=== PATIENT | female | born 1970 | race Caucasian/White ===

== ENCOUNTER 2022-05-24 12:10 | Emergency (ER) | payer OTHER ==
--- OUTSIDE RECORDS SUMMARY | 2022-05-24 12:17 | XMS REPORT | Continuity of Care Document ---
:1970 Author Organization [facility] t Address [address] [place] [address] Care Team Providers Name Role Phone DAVID CHILDRESS YASHIRA Primary Care Physician Unavailable DONAL LEDEZMA Attending Clinician Unavailable YESENIA CHAPMAN Attending Clinician Unavailable CARSON SPARKS Attending Clinician Unavailable RANDAL DECKER Attending Clinician Unavailable OXANA HARVEY Attending Clinician Unavailable DEWAYNE DIAZ Attending Clinician Unavailable DEREK CASTAÑEDA Attending Clinician Unavailable OXANA HARVEY Admitting Clinician Unavailable TOD PORTER Admitting Clinician Unavailable DEREK CASTAÑEDA Admitting Clinician Unavailable Payers Payer Name Policy Type Policy Number Effective Date Expiration Date S bennie MEDICARE PART A [id number] 2012 \T\ B 00:00:00 MEDICAID OF [place] [id number] 2012 00:00:00 Problems Condition Condition Condition Status Onset Resolution Last Treating Co mments Source Name Details Category Date Date Treatment Clinician Date NSTEMI NSTEMI Disease Active [facility]10 [facility] elevated elevated 00:00: Medica l myocardial myocardial 00 Ce nter infarction infarction ) ) Hypokalemi Hypokalemi Disease Active [facility] a a [facility]10 [facility] 00:[facility]: Medical 00 [place] Diabetes Diabetes Disease Active [facility] mellitus mellitus [facility]10 [facility] 00:[facility]: Medical 00 [place] Essential Essential Disease Active [facility] hypertensi hypertensi 2-10 [facility] on on 00:00: Medical 00 [place] Chronic Chronic Disease Active [facility] pancreatit pancreatit 2-10 [facility] is is 00:00: Medical [place] COPD COPD Disease Active [facility] (chronic (chronic [facility]10 [facility] obstructiv obstructiv 00:00: Me dical e e 00 Center pulmonary pulmonary disease) disease) LANDON LANDON Disease Active [facility] (obstructi (obstructi 2-10 [place] ve sleep ve sleep 00:00: Medica l apnea) apnea) 00 Center Allergies, Adverse Reactions, Alerts Allergy Allergy Status Severity Reaction(s) Onset Inactive Treating Comm ents Source Name Type Date Date Clinician ADHESIVE Allergy Active Hives [facility]10 [facility] 00:00: Medical [place] DOXYCYCL Allergy Active N\T\V [facility] INE 2-10 [facility] 00:00: Medical [place] IODINE Allergy Active Other [facility] AND 2-10 [facility] IODIDE 00:00: Medical CONTAINI 00 [place] NG PRODUCTS MORPHINE Allergy Active [facility] 2[facility]10 [facility] 00:00: Medical [place] OTHER Allergy Active Hives [facility] 2[facility]10 [facility] 00:00: Medical 00 [place] Adhesive Propensi Active Hives [facility] ty to 2-10 [facility] adverse 00:00: Medical reaction 00 [place] s Doxycycl Propensi Active Nausea And [facility] ine ty to Vomiting 2-10 [facility] adverse 00:00: Medical reaction 00 Center s Iodine Propensi Active Other (See seizures [facility] And ty to Comments) 2-10 [facility] Iodide adverse 00:00: Medical Containi reaction 00 [place] ng s Products Morphine Drug Active HYPOTENSI [facility] Intolera 2-10 ON [facility] nce 00:00: Medical [place] Other Propensi Active Hives [facility] ty to 2-10 l [facility] adverse 00:00: sweetener Medica l reaction 00 s [place] s ADHESIVE Drug Active Hives Univers Class 2-10 ity of 00:00: [address] DOXYCYCL DRUG Active N/V Univers INE INGREDI 2-10 ity of 00:00: [address] IODINE Drug Active Unknown-Cmnt Univ ers AND Class 2-10 ity of IODIDE 00:00: [place] CONTAINI 00 [facility] PRODUCTS MORPHINE DRUG Active Unknown-Cmnt Un luz [place] INGREDI 2-10 ity of 00:00: [place] 00 [facility] Social History Social Habit Start Date Stop Date Quantity Comments Source History of tobacco Cigarette Smoker [facility] use [facility] Cigarette 2017-08-20 2017-08-[address] [facility] [address] kes pack-years 00:00:00 00:00:00 [facility] Tobacco use and 2017-08-20 2017-08-[address] [facility] [address] [place] kes exposure 00:00:00 00:00:00 [facility] Cigarettes smoked 2017-08-20 2017-08-[address] [facility] [address] kes current (pack per 00:00:00 00:00:00 [facility] day) - Reported Sex Assigned At [birth year] [facility] 00:00:00 00:00:00 [facility] Smoking Status Start Date Stop Date Source Current every day smoker 2017-08-20 00:00:00 [facility] Medications Ordered Filled Start Stop Current Ordering Indication Dosage Frequency Signature Comments Components Source Medication Medication Date Date Medication? Clinician (SIG) Name Name pantoprazol Yes 40mg QD Take [address] [facility] e 2-13 by mouth [facility] (PROTONIX) 15:04: daily. Medic al 40 MG 44 Center tablet fluticasone Yes 1{spray QD [address] [address] (FLONASE) 2-13 } Nasal [facility] 50 15:04: route Medical mcg/actuati 44 daily. Center on nasal spray metoprolol Yes 50mg QD Take [address] (TOPROL-XL) 2-13 by mouth Luke s 50 MG 24 hr 15:04: daily. Medi dontae tablet 44 Center albuterol-i Yes 2{puff} Inhale [address] pratropium 2-13 puffs by [facility] (COMBIVENT 15:04: mouth via Me dical RESPIMAT) 44 inhaler Center 20-100 every 4 mcg/actuati (four) on Mist hours as inhaler needed for Wheezing. umeclidiniu Yes 1{puff} QD Inhale [address] m-vilantero 2-13 puff by [facility] l (ANORO 15:04: mouth via Medi dontae ELLIPTA) 44 inhaler Center 62.5-25 daily. mcg/actuati on DsDv albuterol 2017-0 Yes 1{ampul Take [address] (ACCUNEB) 2-13 e} ampule by [facility] 0.63 mg/3 15:04: nebulizati Me dical mL 44 on every 4 Center nebulizer (four) solution hours as needed for Wheezing. lipase-prot 2017- Yes 44145M{ Q.25D Take [facility] ease-amylas 2-13 lipase} 36,000 Andreas es e (CREON) 15:04: units of Medi dontae 36,000-114, [address] 000- mouth 4 180,000 (four) unit CpDR times capsule daily. ursodiol 2017-0 Yes 500mg QD Take [address] (ACTIGALL) 2-13 mg by [facility] 500 MG 15:04: mouth Medical tablet 44 daily. Center baclofen 2017-0 Yes 20mg Q.[id number] Take [address] (LIORESAL) 2-13 [id number] by mouth 3 [facility] 20 MG 15:04: 3D (three) Medical tablet 44 times Center daily. insulin 2017- Yes Inject [facility] aspart 100 2-13 subcutaneo Andreas es unit/mL 15:04: usly Medical Crtg 44 Administer Center ed by patient via insulin pump . aspirin 81 Yes 81mg QD Take 1 [facility] t MG chewable 2-13 tablet (81 Ebony kes tablet 00:00: mg total) Medica l 00 by mouth Center daily. Procedures This patient has no known procedures. Encounters Start End Encounter Admission Attending Care Care Encounter Source Date/Time Date/Time Type Type Clinicians Facility Department ID 2020-11-19 2020-11-19 Outpatient R BRISA [facility] [id number] Univers 00:00:00 00:00:00 DONAL [facility] 2020-06-12 2020-06-12 [id number] Univers 08:45:49 23:59:00 YESENIA [facility] 2020-06-08 2020-06-08 Emergency X SPARKS, [facility] ERT [id number] Univers 22:43:00 22:43:00 CARSON duarte [facility] 2020-04-30 2020-04-30 Emergency X JERONIMO, [facility] ERT [id number] Univers 20:45:00 20:45:00 RANDAL [facility] 2019-12-25 2019-12-25 Emergency X WES [facility] ERT [id number] Univers 20:45:48 23:00:00 OXANA [facility] 2019-06-27 2019-06-28 Emergency X EMILY [facility] ERT [id number] Univers 22:35:06 01:34:00 DEWAYNE [facility] Results Test Description Test Time Test Comments Results Result Comments Source BLOOD CULTURE 2017-08-26 05:01:00 Test Item Value Reference Range Interpretation Comme nts CULTURE (BEAKER) (test code = 1095) No growth in 5 days BLOOD [id number] 05:01:00 Test Item Value Reference Range Interpretation Comments CULTURE (BEAKER) (test No growth in 5 days code = 1095) CBC W/PLT COUNT & AUTO [id number] 13:17:00 Test Item Value Reference Range Interpretation Comments WHITE BLOOD CELL COUNT (BEAKER) 17.7 K/ L 3.5-10.5 H (test code = 775) RED BLOOD CELL COUNT (BEAKER) 5.10 M/ L 3.93-5.22 (test code = 761) HEMOGLOBIN (BEAKER) (test code = 15.5 GM/DL 11.2-15.7 410) HEMATOCRIT (BEAKER) (test code = 46.7 % 34.1-44.9 H 411) MEAN CORPUSCULAR VOLUME (BEAKER) 91.6 fL 79.4-94.8 (test code = 753) MEAN CORPUSCULAR HEMOGLOBIN 30.4 pg 25.6-32.2 (BEAKER) (test code = 751) MEAN CORPUSCULAR HEMOGLOBIN CONC 33.2 GM/DL 32.2-35.5 (BEAKER) (test code = 752) RED CELL DISTRIBUTION WIDTH 12.5 % 11.7-14.4 (BEAKER) (test code = 412) PLATELET COUNT (BEAKER) (test 199 K/CU MM 150-450 code = 756) MEAN PLATELET VOLUME (BEAKER) 11.1 fL 9.4-12.3 (test code = 754) NUCLEATED RED BLOOD CELLS 0 /100 WBC 0-0 (BEAKER) (test code = 413) NEUTROPHILS RELATIVE PERCENT 68 % (BEAKER) (test code = 429) LYMPHOCYTES RELATIVE PERCENT 24 % (BEAKER) (test code = 430) MONOCYTES RELATIVE PERCENT 6 % (BEAKER) (test code = 431) EOSINOPHILS RELATIVE PERCENT 1 % (BEAKER) (test code = 432) BASOPHILS RELATIVE PERCENT 0 % (BEAKER) (test code = 437) NEUTROPHILS ABSOLUTE COUNT 12.11 K/ L 1.56-6.13 H (BEAKER) (test code = 670) LYMPHOCYTES ABSOLUTE COUNT 4.28 K/ L 1.18-3.74 H (BEAKER) (test code = 414) MONOCYTES ABSOLUTE COUNT (BEAKER) 1.09 K/ L 0.24-0.36 H (test code = 415) EOSINOPHILS ABSOLUTE COUNT 0.08 K/ L 0.04-0.36 (BEAKER) (test code = 416) BASOPHILS ABSOLUTE COUNT (BEAKER) 0.07 K/ L 0.01-0.08 (test code = 417) IMMATURE GRANULOCYTES-RELATIVE 1 % 0-1 PERCENT (BEAKER) (test code = 2801) POCT-GLUCOSE [id number] 12:20:00 Test Item Value Reference Range Interpretation Comments POC-GLUCOSE METER 147 mg/dL 70-110 H TESTED AT [place] [address] ([facility]) (test code = [facility] 1538) [id number] POCT-GLUCOSE [id number] 09:40:00 Test Item Value Reference Range Interpretation Comments POC-GLUCOSE METER 111 mg/dL 70-110 H TESTED AT [place] [address] ([facility]) (test code = [facility] 1538) [id number] CBC W/PLT COUNT & AUTO [id number] 07:13:00 Test Item Value Reference Range Interpretation Comments WHITE BLOOD CELL COUNT (BEAKER) 20.4 K/ L 3.5-10.5 H (test code = 775) RED BLOOD CELL COUNT (BEAKER) 4.93 M/ L 3.93-5.22 (test code = 761) HEMOGLOBIN (BEAKER) (test code = 15.0 GM/DL 11.2-15.7 410) HEMATOCRIT (BEAKER) (test code = 45.0 % 34.1-44.9 H 411) MEAN CORPUSCULAR VOLUME (BEAKER) 91.3 fL 79.4-94.8 (test code = 753) MEAN CORPUSCULAR HEMOGLOBIN 30.4 pg 25.6-32.2 (BEAKER) (test code = 751) MEAN CORPUSCULAR HEMOGLOBIN CONC 33.3 GM/DL 32.2-35.5 (BEAKER) (test code = 752) RED CELL DISTRIBUTION WIDTH 12.4 % 11.7-14.4 (BEAKER) (test code = 412) PLATELET COUNT (BEAKER) (test 175 K/CU MM 150-450 code = 756) MEAN PLATELET VOLUME (BEAKER) 11.1 fL 9.4-12.3 (test code = 754) NUCLEATED RED BLOOD CELLS 0 /100 WBC 0-0 (BEAKER) (test code = 413) NEUTROPHILS RELATIVE PERCENT 74 % (BEAKER) (test code = 429) LYMPHOCYTES RELATIVE PERCENT 20 % (BEAKER) (test code = 430) MONOCYTES RELATIVE PERCENT 5 % (BEAKER) (test code = 431) EOSINOPHILS RELATIVE PERCENT 0 % (BEAKER) (test code = 432) BASOPHILS RELATIVE PERCENT 0 % (BEAKER) (test code = 437) NEUTROPHILS ABSOLUTE COUNT 15.15 K/ L 1.56-6.13 H (BEAKER) (test code = 670) LYMPHOCYTES ABSOLUTE COUNT 4.03 K/ L 1.18-3.74 H (BEAKER) (test code = 414) MONOCYTES ABSOLUTE COUNT (BEAKER) 1.05 K/ L 0.24-0.36 H (test code = 415) EOSINOPHILS ABSOLUTE COUNT 0.02 K/ L 0.04-0.36 L (BEAKER) (test code = 416) BASOPHILS ABSOLUTE COUNT (BEAKER) 0.04 K/ L 0.01-0.08 (test code = 417) IMMATURE GRANULOCYTES-RELATIVE 1 % 0-1 PERCENT (BEAKER) (test code = 2801) [id number] 06:15:00 Test Item Value Reference Range Interpretation Comments PHOSPHORUS (BEAKER) (test code = 3.6 mg/dL 2.3-4.7 604) [id number] 06:15:00 Test Item Value Reference Range Interpretation Comments MAGNESIUM (BEAKER) (test code = 1.7 mg/dL 1.6-2.6 627) BASIC METABOLIC [id number] 06:15:00 Test Item Value Reference Range Interpretation Comments SODIUM (BEAKER) 141 meq/L 136-145 (test code = 381) POTASSIUM (BEAKER) 4.0 meq/L 3.5-5.1 (test code = 379) CHLORIDE (BEAKER) 107 meq/L 98-107 (test code = 382) CO2 (BEAKER) (test 25 meq/L 22-29 code = 355) BLOOD UREA NITROGEN 25 mg/dL 7-21 H (BEAKER) (test code = 354) CREATININE (BEAKER) 0.76 mg/dL 0.57-1.25 (test code = 358) GLUCOSE RANDOM 183 mg/dL 70-105 H (BEAKER) (test code = 652) CALCIUM (BEAKER) 9.5 mg/dL 8.4-10.2 (test code = 697) EGFR (BEAKER) (test 81 mL/min/1.73 ESTIMA JAIRO GFR IS code = 1092) sq m NOT ACCURATE CREATININE CLEARANCE IN PREDICTING GLOMERULAR FILTRATION RATE . ESTIMATED GFR I S NOT APPLICABLE FOR DIALYSIS PATIEN TS. POCT-GLUCOSE [id number] 00:18:00 Test Item Value Reference Range Interpretation Comments POC-GLUCOSE METER 251 mg/dL 70-[address] [facility] 67[address] (BEAKER) (test code = JARRETT Serra [place] [address]) [id number] POCT-GLUCOSE [id number] 17:27:00 Test Item Value Reference Range Interpretation Comments POC-GLUCOSE METER 304 mg/dL 70-110 H Will Repea t Test/TESTED (BEAKER) (test code = AT [place] [address] [place] [address]) [facility] 7[address] 0 POCT-GLUCOSE [id number] 15:55:00 Test Item Value Reference Range Interpretation Comments POC-GLUCOSE METER 326 mg/dL 70-110 H Will Repea t Test/TESTED (BEAKER) (test code = AT [place] [address]) [facility] 7703 0 PLATELET AGGREGATION: DRUG [id number] 14:02:00 Test Item Value Reference Range Interpretation Comments STRONG ADP 44 % 70-94 L RESULT(BEAKER) (test code = 2137) WEAK ADP RESULT(BEAKER) 34 % 60-91 L (test code = 2135) ARACHADONIC ACID 4 % 63-89 L RESULT(BEAKER) (test code = 2138) PLATELET AGG DRUG Decreased response to INTERPRETATION (BEAKER) ADP suggest a (test code = 2408) [id number] drug effect. PLATELET AGG DRUG Decreased response to INTERPRETATION (BEAKER) arachidonic acid (test code = 110301) suggests aspirin-like effect. [id number] Bertha Díaz MD (BEAKER) (test code = (electronic 2621) signature) PLATELET COUNT AGG 181 K/CU MM 150-450 (BEAKER) (test code = 2656) RESPIRATORY PANEL [id number] 13:54:00 Test Item Value Reference Range Interpretation Comments HUMAN METAPNEUMOVIRUS Not detected Not detected, (BEAKER) (test code = Inconclusive 2683) RHINOVIRUS (BEAKER) (test Not detected Not detected, code = 2684) Inconclusive INFLUENZA A (BEAKER) (test Not detected Not detected, code = 2685) Inconclusive INFLUENZA A SUBTYPE H1 Not detected Not detected, (BEAKER) (test code = Inconclusive 2686) INFLUENZA A SUBTYPE H3 Not detected Not detected, (BEAKER) (test code = Inconclusive 2687) INFLUENZA A SUBTYPE Not detected Not detected, H1-2009 (BEAKER) (test Inconclusive code = 3198) INFLUENZA B (BEAKER) (test Not detected Not detected, code = 2688) Inconclusive RESPIRATORY SYNCYTIAL Not detected Not detected, VIRUS (BEAKER) (test code Inconclusive = 3199) PARAINFLUENZA VIRUS 1 Not detected Not detected, (BEAKER) (test code = Inconclusive 2691) PARAINFLUENZA VIRUS 2 Not detected Not detected, (BEAKER) (test code = Inconclusive 2692) PARAINFLUENZA VIRUS 3 Not detected Not detected, (BEAKER) (test code = Inconclusive 2693) PARAINFLUENZA VIRUS 4 Not detected Not detected, (BEAKER) (test code = Inconclusive 3200) ADENOVIRUS (BEAKER) (test Not detected Not detected, code = 2694) Inconclusive CORONAVIRUS 229E (BEAKER) Not detected Not detected, (test code = 3201) Inconclusive CORONAVIRUS HKU1 (BEAKER) Not detected Not detected, (test code = 3202) Inconclusive CORONAVIRUS NL63 (BEAKER) Not detected Not detected, (test code = 3203) Inconclusive CORONAVIRUS OC43 (BEAKER) Not detected Not detected, (test code = 3204) Inconclusive BORDETELLA PERTUSSIS Not detected Not detected, (BEAKER) (test code = Inconclusive 3205) CHLAMYDOPHILA PNEUMONIAE Not detected Not detected, (BEAKER) (test code = Inconclusive 3206) MYCOPLASMA PNEUMONIAE Not detected Not detected, (BEAKER) (test code = Inconclusive 3207) POCT-GLUCOSE [id number] 11:58:00 Test Item Value Reference Range Interpretation Comments POC-GLUCOSE METER 152 mg/dL 70-110 H TESTED AT [place] [address] (BEAKER) (test code = [facility] 1538) [id number] POCT-GLUCOSE [id number] 09:46:00 Test Item Value Reference Range Interpretation Comments POC-GLUCOSE METER 162 mg/dL 70-110 H TESTED AT [place] [address] ([facility]) (test code = [facility] 1538) [id number] RESPIRATORY PANEL [id number] 09:09:00 Test Item Value Reference Range Interpretation Comments HUMAN METAPNEUMOVIRUS Not detected Not detected, (BEAKER) (test code = Inconclusive 2683) RHINOVIRUS (BEAKER) (test Not detected Not detected, code = 2684) Inconclusive INFLUENZA A (BEAKER) (test Not detected Not detected, code = 2685) Inconclusive INFLUENZA A SUBTYPE H1 Not detected Not detected, (BEAKER) (test code = Inconclusive 2686) INFLUENZA A SUBTYPE H3 Not detected Not detected, (BEAKER) (test code = Inconclusive 2687) INFLUENZA A SUBTYPE Not detected Not detected, H1-2009 (BEAKER) (test Inconclusive code = 3198) INFLUENZA B (BEAKER) (test Not detected Not detected, code = 2688) Inconclusive RESPIRATORY SYNCYTIAL Not detected Not detected, VIRUS (BEAKER) (test code Inconclusive = 3199) PARAINFLUENZA VIRUS 1 Not detected Not detected, (BEAKER) (test code = Inconclusive 2691) PARAINFLUENZA VIRUS 2 Not detected Not detected, (BEAKER) (test code = Inconclusive 2692) PARAINFLUENZA VIRUS 3 Not detected Not detected, (BEAKER) (test code = Inconclusive 2693) PARAINFLUENZA VIRUS 4 Not detected Not detected, (BEAKER) (test code = Inconclusive 3200) ADENOVIRUS (BEAKER) (test Not detected Not detected, code = 2694) Inconclusive CORONAVIRUS 229E (BEAKER) Not detected Not detected, (test code = 3201) Inconclusive CORONAVIRUS HKU1 (BEAKER) Not detected Not detected, (test code = 3202) Inconclusive CORONAVIRUS NL63 (BEAKER) Not detected Not detected, (test code = 3203) Inconclusive CORONAVIRUS OC43 (BEAKER) Not detected Not detected, (test code = 3204) Inconclusive BORDETELLA PERTUSSIS Not detected Not detected, (BEAKER) (test code = Inconclusive 3205) CHLAMYDOPHILA PNEUMONIAE Not detected Not detected, (BEAKER) (test code = Inconclusive 3206) MYCOPLASMA PNEUMONIAE Not detected Not detected, (BEAKER) (test code = Inconclusive 3207) POCT-GLUCOSE [id number] 08:14:00 Test Item Value Reference Range Interpretation Comments POC-GLUCOSE METER 173 mg/dL 70-[address] [facility] 67[facility] (BEAKER) (test code = JARRETT ALVAREZ [place] 1538) [address] [id number] 07:23:00 Test Item Value Reference Range Interpretation Comments PHOSPHORUS (BEAKER) (test code = 3.6 mg/dL 2.3-4.7 604) [id number] 07:23:00 Test Item Value Reference Range Interpretation Comments MAGNESIUM (BEAKER) (test code = 2.1 mg/dL 1.6-2.6 627) BASIC METABOLIC [id number] 07:23:00 Test Item Value Reference Range Interpretation Comments SODIUM (BEAKER) 138 meq/L 136-145 (test code = 381) POTASSIUM (BEAKER) 4.8 meq/L 3.5-5.1 (test code = 379) CHLORIDE (BEAKER) 103 meq/L 98-107 (test code = 382) CO2 (BEAKER) (test 26 meq/L 22-29 code = 355) BLOOD UREA NITROGEN 14 mg/dL 7-21 (BEAKER) (test code = 354) CREATININE (BEAKER) 0.75 mg/dL 0.57-1.25 (test code = 358) GLUCOSE RANDOM 223 mg/dL 70-105 H (BEAKER) (test code = 652) CALCIUM (BEAKER) 9.5 mg/dL 8.4-10.2 (test code = 697) EGFR (BEAKER) (test 82 mL/min/1.73 ESTIMA JAIRO GFR IS code = 1092) sq m NOT ACCURATE CREATININE CLEARANCE IN PREDICTING GLOMERULAR FILTRATION RATE . ESTIMATED GFR I S NOT APPLICABLE FOR DIALYSIS PATIEN TS. POCT-GLUCOSE [id number] 06:24:00 Test Item Value Reference Range Interpretation Comments POC-GLUCOSE METER 202 mg/dL 70-[address] [facility] 67[facility] (BEAKER) (test code = JARRETT ALVAREZ [place] 1538) [address] CBC W/PLT COUNT & AUTO [id number] 06:03:00 Test Item Value Reference Range Interpretation Comments WHITE BLOOD CELL COUNT (BEAKER) 13.0 K/ L 3.5-10.5 H (test code = 775) RED BLOOD CELL COUNT (BEAKER) 5.35 M/ L 3.93-5.22 H (test code = 761) HEMOGLOBIN (BEAKER) (test code = 16.5 GM/DL 11.2-15.7 H 410) HEMATOCRIT (BEAKER) (test code = 49.0 % 34.1-44.9 H 411) MEAN CORPUSCULAR VOLUME (BEAKER) 91.6 fL 79.4-94.8 (test code = 753) MEAN CORPUSCULAR HEMOGLOBIN 30.8 pg 25.6-32.2 (BEAKER) (test code = 751) MEAN CORPUSCULAR HEMOGLOBIN CONC 33.7 GM/DL 32.2-35.5 (BEAKER) (test code = 752) RED CELL DISTRIBUTION WIDTH 12.3 % 11.7-14.4 (BEAKER) (test code = 412) PLATELET COUNT (BEAKER) (test 167 K/CU MM 150-450 code = 756) MEAN PLATELET VOLUME (BEAKER) 10.9 fL 9.4-12.3 (test code = 754) NUCLEATED RED BLOOD CELLS 0 /100 WBC 0-0 (BEAKER) (test code = 413) NEUTROPHILS RELATIVE PERCENT 86 % (BEAKER) (test code = 429) LYMPHOCYTES RELATIVE PERCENT 12 % (BEAKER) (test code = 430) MONOCYTES RELATIVE PERCENT 1 % (BEAKER) (test code = 431) EOSINOPHILS RELATIVE PERCENT 0 % (BEAKER) (test code = 432) BASOPHILS RELATIVE PERCENT 0 % (BEAKER) (test code = 437) NEUTROPHILS ABSOLUTE COUNT 11.26 K/ L 1.56-6.13 H (BEAKER) (test code = 670) LYMPHOCYTES ABSOLUTE COUNT 1.56 K/ L 1.18-3.74 (BEAKER) (test code = 414) MONOCYTES ABSOLUTE COUNT (BEAKER) 0.15 K/ L 0.24-0.36 L (test code = 415) EOSINOPHILS ABSOLUTE COUNT 0.00 K/ L 0.04-0.36 L (BEAKER) (test code = 416) BASOPHILS ABSOLUTE COUNT (BEAKER) 0.03 K/ L 0.01-0.08 (test code = 417) IMMATURE GRANULOCYTES-RELATIVE 0 % 0-1 PERCENT (BEAKER) (test code = 2801) [id number] 05:54:00 Test Item Value Reference Range Interpretation Comments PARTIAL THROMBOPLASTIN TIME 78.8 seconds 22.5-36.0 H (BEAKER) (test code = 760) POCT-GLUCOSE [id number] 05:34:00 Test Item Value Reference Range Interpretation Comments POC-GLUCOSE METER 219 mg/dL 70-[address] [facility] ([facility]) (test code = JARRETT Serra [facility] 1538) [address] RAD, CHEST, 1 VIEW, NON [id number] 04:57:00Reason for exam:->NSTEMIShould this be performed at the bedside?->YesFINAL REPORT Chest one view. Clinical history: NSTEMI Comparison: Chest radiograph 08/21/2017 Technique: A single frontal view of the chest was obtained. Findings: The heart is normal in size. There is no focal pulmonary consolidation, pulmonary edema, pleural effusion or pneumothorax. The bony thorax is unremarkable. Signed: Columba Koch MDReport Verified Date/Time: 08/22/2017 04:57:34 Reading Location: [address] Transitional Reading Room URINALYSIS W/ [id number] 03:42:00 Test Item Value Reference Range Interpretation Comments COLOR (BEAKER) (test code = 470) Light Yellow CLARITY (BEAKER) (test code = Clear 469) SPECIFIC GRAVITY UA (BEAKER) 1.010 1.001-1.035 (test code = 468) PH UA (BEAKER) (test code = 467) 7.0 5.0-8.0 PROTEIN UA (BEAKER) (test code = Negative Negative 464) GLUCOSE UA (BEAKER) (test code = Negative Negative 365) KETONES UA (BEAKER) (test code = Negative Negative 371) BILIRUBIN UA (BEAKER) (test code Negative Negative = 462) BLOOD UA (BEAKER) (test code = Negative Negative 461) NITRITE UA (BEAKER) (test code = Negative Negative 465) LEUKOCYTE ESTERASE UA (BEAKER) Negative Negative (test code = 466) UROBILINOGEN UA (BEAKER) (test 0.2 mg/dL 0.2-1.0 code = 463) RBC UA (BEAKER) (test code = 3 /HPF 519) WBC UA (BEAKER) (test code = < /HPF 520) SQUAMOUS EPITHELIAL (BEAKER) 1 /HPF (test code = 516) AMORPHOUS CRYSTALS (BEAKER) Rare (test code = 1584) SOURCE(BEAKER) (test code = 2795) POCT-GLUCOSE [id number] 03:07:00 Test Item Value Reference Range Interpretation Comments POC-GLUCOSE METER 205 mg/dL 70-110 H TESTED AT [place] [address] ([facility]) (test code = JARRETT DOBSON 1538) [address] CREATINE KINASE (CK), TOTAL AND [id number] 01:02:00 Test Item Value Reference Range Interpretation Comments CREATINE KINASE TOTAL (BEAKER) 122 U/L 29-200 (test code = 380) CREATINE KINASE-MB (BEAKER) (test 2.7 ng/mL 0.0-6.6 code = 750) CREATINE KINASE-MB INDEX (BEAKER) 2.2 % (test code = 395) CK-MB Reference Range:<6.7 Normal6.7-10.0 Borderline>10.0 AbnormalAPTT 2017-08-22 00:56:00 Test Item Value Reference Range Interpretation Comments PARTIAL THROMBOPLASTIN TIME 73.3 seconds 22.5-36.0 H (BEAKER) (test code = 760) POCT-GLUCOSE [id number] 00:21:00 Test Item Value Reference Range Interpretation Comments POC-GLUCOSE METER 170 mg/dL 70-110 H TESTED AT [place] [address] ([facility]) (test code = JARRETT Serra [facility] 1538) [id number] CREATINE KINASE (CK), TOTAL AND [id number] 21:11:00 Test Item Value Reference Range Interpretation Comments CREATINE KINASE TOTAL ([facility]) 143 U/L 29-200 (test code = 380) CREATINE KINASE-MB ([facility]) (test 3.7 ng/mL 0.0-6.6 code = 750) CREATINE KINASE-MB INDEX ([facility]) 2.6 % (test code = 395) CK-MB Reference Range:<6.7 Normal6.7-10.0 Borderline>10.0 AbnormalAPTT 2017-08-21 18:45:00 Test Item Value Reference Range Interpretation Comments PARTIAL THROMBOPLASTIN TIME 68.3 seconds 22.5-36.0 H ([facility]) (test code = 760) POCT-GLUCOSE [id number] 18:14:00 Test Item Value Reference Range Interpretation Comments POC-GLUCOSE METER 208 mg/dL 70-110 H TESTED AT [place] [address] ([facility]) (test code = JARRETT Serra [facility] 1538) [id number] POCT-GLUCOSE [id number] 16:28:00 Test Item Value Reference Range Interpretation Comments POC-GLUCOSE METER 195 mg/dL 70-110 H TESTED AT [place] [address] ([facility]) (test code = JARRETT Serra [facility] 1538) [id number] POCT-GLUCOSE [id number] 14:34:00 Test Item Value Reference Range Interpretation Comments POC-GLUCOSE METER 152 mg/dL 70-110 H TESTED AT [place] [address] ([facility]) (test code = JARRETT Serra [facility] 1538) [id number] POCT-GLUCOSE [id number] 12:09:00 Test Item Value Reference Range Interpretation Comments POC-GLUCOSE METER 86 mg/dL 70-110 TESTED AT [place] [address] ([facility]) (test code = BANNER Maryse [facility] [address] 1538) TROPONIN [id number] 12:02:00 Test Item Value Reference Range Interpretation Comments TROPONIN I ([facility]) (test code = 6.26 ng/mL 0.00-0.03 397) Troponin I (TnI) levels must be interpreted in the context of the presenting symptoms and the clinical findings. Elevated TnI levels indicate myocardial damage, but are not specific for ischemic heart disease. Elevated TnI levels are seen in patients with other cardiac conditions (including myocarditis and congestive heart failure), and slight TnI elevations occur in patients with other conditions, including sepsis, renal failure, acidosis, acute neurological disease, and persistent tachyarrhythmia.CREATINE KINASE (CK), TOTAL AND MB 2017-08-21 12:00:00 Test Item Value Reference Range Interpretation Comments CREATINE KINASE TOTAL (BEAKER) 185 U/L 29-200 (test code = 380) CREATINE KINASE-MB (BEAKER) (test 5.9 ng/mL 0.0-6.6 code = 750) CREATINE KINASE-MB INDEX (BEAKER) 3.2 % (test code = 395) CK-MB Reference Range:<6.7 Normal6.7-10.0 Borderline>10.0 AbnormalAPTT 2017-08-21 11:52:00 Test Item Value Reference Range Interpretation Comments PARTIAL THROMBOPLASTIN TIME 45.0 seconds 22.5-36.0 H (BEAKER) (test code = 760) HEMOGLOBIN [id number] 09:44:00 Test Item Value Reference Range Interpretation Comments HEMOGLOBIN A1C (BEAKER) (test code = 8.0 % 4.3-6.1 H 368) RAPID INFLUENZA A&B [id number] 08:47:00 Test Item Value Reference Range Interpretation Comments RAPID INFLUENZA A AG (BEAKER) Negative Negative, Inconclusive (test code = 1622) RAPID INFLUENZA B AG (BEAKER) Negative Negative, Inconclusive (test code = 1623) RAD, CHEST, 1 VIEW, NON [id number] 08:39:00Reason for exam:->NSTEMIShould this be performed at the bedside?->YesFINAL REPORT Chest, one view. HISTORY: NSTEMI COMPARISON: 08/20/2017 IMPRESSION:No significant change. Lungs clear without focal consolidation. No pleural effusion or pneumothorax.Cardiomediastinal silhouette is within normal limits. No acute osseous abnormality. Signed: Brian Thompson MDReport Verified Date/Time: 08/21/2017 08:39:52 Reading Location: [address] Body Reading Room CBC W/PLT COUNT & AUTO [id number] 07:23:00 Test Item Value Reference Range Interpretation Comments WHITE BLOOD CELL COUNT (BEAKER) 13.8 K/ L 3.5-10.5 H (test code = 775) RED BLOOD CELL COUNT (BEAKER) 5.15 M/ L 3.93-5.22 (test code = 761) HEMOGLOBIN (BEAKER) (test code = 15.6 GM/DL 11.2-15.7 410) HEMATOCRIT (BEAKER) (test code = 46.8 % 34.1-44.9 H 411) MEAN CORPUSCULAR VOLUME (BEAKER) 90.9 fL 79.4-94.8 (test code = 753) MEAN CORPUSCULAR HEMOGLOBIN 30.3 pg 25.6-32.2 (BEAKER) (test code = 751) MEAN CORPUSCULAR HEMOGLOBIN CONC 33.3 GM/DL 32.2-35.5 (BEAKER) (test code = 752) RED CELL DISTRIBUTION WIDTH 12.7 % 11.7-14.4 (BEAKER) (test code = 412) PLATELET COUNT (BEAKER) (test 181 K/CU MM 150-450 code = 756) MEAN PLATELET VOLUME (BEAKER) 10.9 fL 9.4-12.3 (test code = 754) NUCLEATED RED BLOOD CELLS 0 /100 WBC 0-0 (BEAKER) (test code = 413) NEUTROPHILS RELATIVE PERCENT 60 % (BEAKER) (test code = 429) LYMPHOCYTES RELATIVE PERCENT 31 % (BEAKER) (test code = 430) MONOCYTES RELATIVE PERCENT 7 % (BEAKER) (test code = 431) EOSINOPHILS RELATIVE PERCENT 2 % (BEAKER) (test code = 432) BASOPHILS RELATIVE PERCENT 0 % (BEAKER) (test code = 437) NEUTROPHILS ABSOLUTE COUNT 8.26 K/ L 1.56-6.13 H (BEAKER) (test code = 670) LYMPHOCYTES ABSOLUTE COUNT 4.29 K/ L 1.18-3.74 H (BEAKER) (test code = 414) MONOCYTES ABSOLUTE COUNT (BEAKER) 0.95 K/ L 0.24-0.36 H (test code = 415) EOSINOPHILS ABSOLUTE COUNT 0.21 K/ L 0.04-0.36 (BEAKER) (test code = 416) BASOPHILS ABSOLUTE COUNT (BEAKER) 0.05 K/ L 0.01-0.08 (test code = 417) IMMATURE GRANULOCYTES-RELATIVE 0 % 0-1 PERCENT (BEAKER) (test code = 2801) TROPONIN [id number] 06:48:00 Test Item Value Reference Range Interpretation Comments TROPONIN I (BEAKER) (test code = 8.29 ng/mL 0.00-0.03 HH 397) Troponin I (TnI) levels must be interpreted in the context of the presenting symptoms and the clinical findings. Elevated TnI levels indicate myocardial damage, but are not specific for ischemic heart disease. Elevated TnI levels are seen in patients with other cardiac conditions (including myocarditis and congestive heart failure), and slight TnI elevations occur in patients with other conditions, including sepsis, renal failure, acidosis, acute neurological disease, and persistent tachyarrhythmia.BASIC METABOLIC [id number] 06:48:00 Test Item Value Reference Range Interpretation Comments SODIUM (BEAKER) 142 meq/L 136-145 (test code = 381) POTASSIUM (BEAKER) 3.9 meq/L 3.5-5.1 (test code = 379) CHLORIDE (BEAKER) 106 meq/L 98-107 (test code = 382) CO2 (BEAKER) (test 28 meq/L 22-29 code = 355) BLOOD UREA NITROGEN 10 mg/dL 7-21 (BEAKER) (test code = 354) CREATININE (BEAKER) 0.69 mg/dL 0.57-1.25 (test code = 358) GLUCOSE RANDOM 96 mg/dL 70-105 (BEAKER) (test code = 652) CALCIUM (BEAKER) 9.2 mg/dL 8.4-10.2 (test code = 697) EGFR (BEAKER) (test 90 mL/min/1.73 ESTIMA JAIRO GFR IS code = 1092) sq m NOT ACCURATE CREATININE CLEARANCE IN PREDICTING GLOMERULAR FILTRATION RATE . ESTIMATED GFR I S NOT APPLICABLE FOR DIALYSIS PATIEN TS. CREATINE KINASE (CK), TOTAL AND [id number] 06:20:00 Test Item Value Reference Range Interpretation Comments CREATINE KINASE TOTAL (BEAKER) 227 U/L 29-200 H (test code = 380) CREATINE KINASE-MB (BEAKER) (test 8.9 ng/mL 0.0-6.6 H code = 750) CREATINE KINASE-MB INDEX (BEAKER) 3.9 % (test code = 395) CK-MB Reference Range:<6.7 Normal6.7-10.0 Borderline>10.0 Abnormal [id number] 06:11:00 Test Item Value Reference Range Interpretation Comments MAGNESIUM ([facility]) (test code = 1.9 mg/dL 1.6-2.6 627) LIPID [id number] 06:11:00 Test Item Value Reference Range Interpretation Comments TRIGLYCERIDES ([facility]) (test code = 67 mg/dL 540) CHOLESTEROL ([facility]) (test code = 126 mg/dL 631) HDL CHOLESTEROL ([facility]) (test code 39 mg/dL = 976) LDL CHOLESTEROL CALCULATED ([facility]) 74 mg/dL (test code = 633) Triglyceride Reference Range: Low Risk <150 Borderline 150-199 High Risk 200- 499 Very High Risk >=500Cholesterol Reference Range: Low Risk <200 Borderline 200-239 High Risk >240HDL Cholesterol Reference Range: Low Risk >=60 High Risk <40LDL Cholesterol Reference Range: Optimal <100 Near Optimal 100-129 Borderline 130-159 High 160-189 Very High >=[id number] 06:08:00 Test Item Value Reference Range Interpretation Comments PARTIAL THROMBOPLASTIN TIME 43.0 seconds 22.5-36.0 H ([facility]) (test code = 760) POCT-GLUCOSE [id number] 00:57:00 Test Item Value Reference Range Interpretation Comments POC-GLUCOSE METER 108 mg/dL 70-[address] [facility] [address] ([facility]) (test code = JARRETT [place]VARE[place] 1538) [id number] TROPONIN [id number] 22:29:00 Test Item Value Reference Range Interpretation Comments TROPONIN I ([facility]) (test code = 12.08 ng/mL 0.00-0.03 397) Troponin I (TnI) levels must be interpreted in the context of the presenting symptoms and the clinical findings. Elevated TnI levels indicate myocardial damage, but are not specific for ischemic heart disease. Elevated TnI levels are seen in patients with other cardiac conditions (including myocarditis and congestive heart failure), and slight TnI elevations occur in patients with other conditions, including sepsis, renal failure, acidosis, acute neurological disease, and persistent tachyarrhythmia.HEPATIC FUNCTION [id number] 22:22:00 Test Item Value Reference Range Interpretation Comments TOTAL PROTEIN (BEAKER) (test code = 7.4 gm/dL 6.0-8.3 770) ALBUMIN (BEAKER) (test code = 1145) 3.8 g/dL 3.5-5.0 BILIRUBIN TOTAL (BEAKER) (test code 0.6 mg/dL 0.2-1.2 = 377) BILIRUBIN DIRECT (BEAKER) (test 0.3 mg/dL 0.1-0.5 code = 706) ALKALINE PHOSPHATASE (BEAKER) (test 129 U/L 40-150 code = 346) AST (SGOT) (BEAKER) (test code = 55 U/L 5-34 H 353) ALT (SGPT) (BEAKER) (test code = 22 U/L 6-55 347) CREATINE KINASE (CK), TOTAL AND [id number] 22:22:00 Test Item Value Reference Range Interpretation Comments CREATINE KINASE TOTAL (BEAKER) 356 U/L 29-200 H (test code = 380) CREATINE KINASE-MB (BEAKER) (test 18.5 ng/mL 0.0-6.6 H code = 750) CREATINE KINASE-MB INDEX (BEAKER) 5.2 % (test code = 395) CK-MB Reference Range:<6.7 Normal6.7-10.0 Borderline>10.0 Abnormal HEMOGLOBIN [id number] 22:01:00 Test Item Value Reference Range Interpretation Comments HEMOGLOBIN A1C (BEAKER) (test code = 8.3 % 4.3-6.1 H 368) [id number] 22:00:00 Test Item Value Reference Range Interpretation Comments PARTIAL THROMBOPLASTIN TIME 36.9 seconds 22.5-36.0 H (BEAKER) (test code = 760) Prior to initiating [id number] 21:57:00 Test Item Value Reference Range Interpretation Comments PARTIAL THROMBOPLASTIN TIME 37.6 seconds 22.5-36.0 H (BEAKER) (test code = 760) 6 hours after starting heparin infusion and as indicated per sliding scale CALCIUM, [id number] 21:36:00 Test Item Value Reference Range Interpretation Comments CALCIUM IONIZED (BEAKER) (test 1.13 mmol/L 1.12-1.27 code = 698) PH, BLOOD (BEAKER) (test code = 7.43 1810) TROPONIN [id number] 19:34:00 Test Item Value Reference Range Interpretation Comments TROPONIN I (BEAKER) (test code = 9.65 ng/mL 0.00-0.03 HH 397) Troponin I (TnI) levels must be interpreted in the context of the presenting symptoms and the clinical findings. Elevated TnI levels indicate myocardial damage, but are not specific for ischemic heart disease. Elevated TnI levels are seen in patients with other cardiac conditions (including myocarditis and congestive heart failure), and slight TnI elevations occur in patients with other conditions, including sepsis, renal failure, acidosis, acute neurological disease, and persistent tachyarrhythmia.CREATINE KINASE (CK), TOTAL AND MB [id number] 19:29:00 Test Item Value Reference Range Interpretation Comments CREATINE KINASE TOTAL (BEAKER) 274 U/L 29-200 H (test code = 380) CREATINE KINASE-MB (BEAKER) (test 17.6 ng/mL 0.0-6.6 H code = 750) CREATINE KINASE-MB INDEX (BEAKER) 6.4 % (test code = 395) CK-MB Reference Range:<6.7 Normal6.7-10.0 Borderline>10.0 AbnormalBASIC METABOLIC [id number] 19:26:00 Test Item Value Reference Range Interpretation Comments SODIUM (BEAKER) 145 meq/L 136-145 (test code = 381) POTASSIUM (BEAKER) 3.0 meq/L 3.5-5.1 L (test code = 379) CHLORIDE (BEAKER) 117 meq/L 98-107 H (test code = 382) CO2 (BEAKER) (test 23 meq/L 22-29 code = 355) BLOOD UREA NITROGEN 9 mg/dL 7-21 (BEAKER) (test code = 354) CREATININE (BEAKER) 0.49 mg/dL 0.57-1.25 L (test code = 358) GLUCOSE RANDOM 62 mg/dL 70-105 L (BEAKER) (test code = 652) CALCIUM (BEAKER) 6.4 mg/dL 8.4-10.2 L (test code = 697) EGFR (BEAKER) (test 134 mL/min/1.73 ESTIM ATED GFR IS code = 1092) sq m NOT ACCURATE CREATININE CLEARANCE IN PREDICTING GLOMERULAR FILTRATION RATE . ESTIMATED GFR I S NOT APPLICABLE FOR DIALYSIS PATIEN TS. [id number] 19:23:00 Test Item Value Reference Range Interpretation Comments PHOSPHORUS (BEAKER) (test code = 2.8 mg/dL 2.3-4.7 604) POCT-GLUCOSE [id number] 18:56:00 Test Item Value Reference Range Interpretation Comments POC-GLUCOSE METER 84 mg/dL 70-[address] [facility] (BEAKER) (test code = [place] [address] 1538) [id number] 18:50:00 Test Item Value Reference Range Interpretation Comments PARTIAL THROMBOPLASTIN TIME 37.2 seconds 22.5-36.0 H (BEAKER) (test code = 760) PROTHROMBIN [id number] 18:49:00 Test Item Value Reference Range Interpretation Comments PROTIME (BEAKER) (test code = 15.2 seconds 11.7-14.7 H 759) INR (BEAKER) (test code = 370) 1.2 <=5.9 RECOMMENDED COUMADIN/WARFARIN INR THERAPY RANGESSTANDARD DOSE: 2.0 - 3.0 Includes: PROPHYLAXIS for venous thrombosis, systemic embolization; TREATMENT for venous thrombosis and/or pulmonary embolus.HIGH RISK: Target INR is 2.5-3.5 for patients with mechanical heart valves.CBC W/PLT COUNT & AUTO [id number] 18:48:00 Test Item Value Reference Range Interpretation Comments WHITE BLOOD CELL COUNT (BEAKER) 14.3 K/ L 3.5-10.5 H (test code = 775) RED BLOOD CELL COUNT (BEAKER) 4.53 M/ L 3.93-5.22 (test code = 761) HEMOGLOBIN (BEAKER) (test code = 13.9 GM/DL 11.2-15.7 410) HEMATOCRIT (BEAKER) (test code = 41.4 % 34.1-44.9 411) MEAN CORPUSCULAR VOLUME (BEAKER) 91.4 fL 79.4-94.8 (test code = 753) MEAN CORPUSCULAR HEMOGLOBIN 30.7 pg 25.6-32.2 (BEAKER) (test code = 751) MEAN CORPUSCULAR HEMOGLOBIN CONC 33.6 GM/DL 32.2-35.5 (BEAKER) (test code = 752) RED CELL DISTRIBUTION WIDTH 12.6 % 11.7-14.4 (BEAKER) (test code = 412) PLATELET COUNT (BEAKER) (test 150 K/CU MM 150-450 code = 756) MEAN PLATELET VOLUME (BEAKER) 10.7 fL 9.4-12.3 (test code = 754) NUCLEATED RED BLOOD CELLS 0 /100 WBC 0-0 (BEAKER) (test code = 413) NEUTROPHILS RELATIVE PERCENT 65 % (BEAKER) (test code = 429) LYMPHOCYTES RELATIVE PERCENT 26 % (BEAKER) (test code = 430) MONOCYTES RELATIVE PERCENT 7 % (BEAKER) (test code = 431) EOSINOPHILS RELATIVE PERCENT 2 % (BEAKER) (test code = 432) BASOPHILS RELATIVE PERCENT 0 % (BEAKER) (test code = 437) NEUTROPHILS ABSOLUTE COUNT 9.29 K/ L 1.56-6.13 H (BEAKER) (test code = 670) LYMPHOCYTES ABSOLUTE COUNT 3.72 K/ L 1.18-3.74 (BEAKER) (test code = 414) MONOCYTES ABSOLUTE COUNT (BEAKER) 0.97 K/ L 0.24-0.36 H (test code = 415) EOSINOPHILS ABSOLUTE COUNT 0.24 K/ L 0.04-0.36 (BEAKER) (test code = 416) BASOPHILS ABSOLUTE COUNT (BEAKER) 0.03 K/ L 0.01-0.08 (test code = 417) IMMATURE GRANULOCYTES-RELATIVE 0 % 0-1 PERCENT (BEAKER) (test code = 2801) RAD, CHEST, 1 VIEW, NON [id number] 18:43:00Reason for exam:->NSTEMIShould this be performed at the bedside?->YesFINAL REPORT INDICATION: NSTEMI COMPARISON: None TECHNIQUE: Single frontal viewof the chest. FINDINGS: Lungs and pleura: Clear lungs. No effusion.Heart and mediastinum: Normal heart size. Unremarkable mediastinal contours.Osseous structures: No acute abnormality.Other: None. IMPRESSION: No acute intrathoracic abnormality. Signed: JR Choi Robert [facility] Center[facility] Verified Date/Time: 08/20/2017 18:43:28 Reading Location: [address] Reading Room Electronically signedby: OXANA CHOI on 08/20/2017 06:43 PM
--- NOTE | 2022-05-24 14:08 | RAD REPORT ---
EXAM DESCRIPTION: RAD - Hand Right 3 View - 05/24/2022 2:01 pm CLINICAL HISTORY: ANIMAL BITE COMPARISON: No comparisons FINDINGS: There is soft tissue swelling along the dorsum of the hand. No fracture or radiopaque fore ign body.
--- NOTE | 2022-05-24 15:05 | ER ---
Nurse's Notes [facility] Name: Cindy Montemayor Age: 52 yrs Sex: Female : 1970 Arrival Date: 05/24/2022 Time: 12:14 Bed DIS5 Private MD: Diagnosis: Cellulitis of right upper limb-right hand;Bitten by dog-right hand Presentation: 05/24 12:44 Chief complaint: Patient states: Tuesday I was playing with my friends dog - I grabbed ld1 the toy - the dog tried to grab the toy and got my right hand. Pt reports dog being vaccinated. Redness and swelling to right hand. Coronavirus screen: At this time, the client does not indicate any symptoms associated with coronavirus-19. Ebola Screen: No symptoms or risks identified at this time. Initial Sepsis Screen: Does the patient meet any 2 criteria? No. Patient's initial sepsis screen is negative. Does the patient have a suspected source of infection? No. Patient's initial sepsis screen is negative. Risk Assessment: Do you want to hurt yourself or someone else? Patient reports no desire to harm self or others. Onset of symptoms was May 24, 2022. 12:44 Method Of Arrival: Ambulatory ld1 12:44 Acuity: BERE 3 ld1 Triage Assessment: 12:42 General: Appears in no apparent distress. comfortable, Behavior is calm, cooperative, ld1 appropriate for age. Pain: Complains of pain in right hand Pain does not radiate. Pain currently is 8 out of 10 on a pain scale. Quality of pain is described as throbbing. EENT: No signs and/or symptoms were reported regarding the EENT system. Neuro: Level of Consciousness is awake, alert, obeys commands, Oriented to person, place, time, situation, Appropriate for age. Cardiovascular: Capillary refill < 3 seconds Patient's skin is warm and dry. Respiratory: Airway is patent Respiratory effort is even, unlabored. GI: Abdomen is flat, non-distended. : No signs and/or symptoms were reported regarding the genitourinary system. Derm: Wound noted right hand. Musculoskeletal: No signs and/or symptoms reported regarding the musculoskeletal system. 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 - Social history:: Smoking status: Patient reports the use of cigarette tobacco products, denies chronic smoking, but will smoke occasionally, Patient/guardian denies using alcohol. Vital Signs: 12:42 BP 188 / 94; Pulse 85; Resp 18; Temp 98.1(O); Pulse Ox 97% on R/A; Weight 102.06 kg; ld1 Height 5 ft. 4 in. (162.56 cm); Pain 3/10; 12:42 Body Mass Index 38.62 (102.06 kg, 162.56 cm) ld1 ED Course: 12:14 Patient arrived in ED. rg4 12:17 Jose Juan Nieves PA is PHCP. cp 12:17 Chalino Allison MD is Attending Physician. cp 12:42 Arm band placed on right wrist. ld1 12:45 Triage completed. ld1 14:03 XRAY Hand RIGHT 3 View In Process Unspecified. EDMS 14:55 Arianne Turpin, RN is Primary Nurse. iw 15:01 Orlando Holland MD is Referral Physician. cp Administered Medications: No medications were administered Outcome: 15:04 Discharge ordered by . cp 15:21 Patient left the ED. iw Signatures: Dispatcher [employer] EDMS Arianne Turpin RN RN iw Jose Juan Nieves PA PA cp Garcia, Rubi rg4 Lacie San RN RN ld1
--- NOTE | 2022-05-24 15:05 | EDPHYS ---
Physician Documentation [facility] Name: Cindy Montemayor Age: 52 yrs Sex: Female : 1970 Arrival Date: 05/24/2022 Time: 12:14 Bed DIS5 Private MD: ED Physician Chalino Allison HPI: 05/24 13:40 This 52 yrs old Female presents to ER via Ambulatory with complaints of Hand Pain. cp 13:40 The patient or guardian reports a bite, by a dog, swelling, tenderness. The complaints cp affect the right hand diffusely. Context: The problem was sustained at a friend's house, resulted from dog bite. Onset: The symptoms/episode began/occurred 3 day(s) ago. Associated signs and symptoms: The patient has no apparent associated signs or symptoms. Patient reports she was playing with friend's dog when she sustained several bite wounds to right hand and right wrist. 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 - Social history:: Smoking status: Patient reports the use of cigarette tobacco products, denies chronic smoking, but will smoke occasionally, Patient/guardian denies using alcohol. ROS: 13:45 Constitutional: Negative for body aches, chills, fever, poor PO intake. cp 13:45 Eyes: Negative for injury, pain, redness, and discharge. cp 13:45 ENT: Negative for drainage from ear(s), ear pain, sore throat, difficulty swallowing, difficulty handling secretions. 13:45 Cardiovascular: Negative for chest pain. 13:45 Respiratory: Negative for cough, shortness of breath, wheezing. 13:45 Abdomen/GI: Negative for abdominal pain. 13:45 Back: Negative for pain at rest, pain with movement. 13:45 Skin: Positive for cellulitis, laceration(s), of the right hand and right wrist, multiple, superficial. 13:45 Neuro: Negative for altered mental status, headache, weakness. 13:45 All other systems are negative. Exam: 13:50 Constitutional: The patient appears in no acute distress, alert, awake, non-toxic, well cp developed, well nourished. 13:50 Head/Face: Normocephalic, atraumatic. cp 13:50 Chest/axilla: Inspection: normal. 13:50 Cardiovascular: Rate: normal, Pulses: Pulses are 2+ in right radial artery. 13:50 Respiratory: the patient does not display signs of respiratory distress, Respirations: normal, no use of accessory muscles, no retractions, labored breathing, is not present. 13:50 Abdomen/GI: Inspection: abdomen appears normal. 13:50 Musculoskeletal/extremity: Extremities: noted in the right hand and right wrist: erythema, swelling, tenderness, ROM: full active range of motion, in the right hand and right wrist, the right hand and right wrist Sensation intact. 13:50 Skin: injury, laceration(s), of the right hand and right wrist, that can be described as no foreign body, irregular, multiple, superficial. Vital Signs: 12:42 BP 188 / 94; Pulse 85; Resp 18; Temp 98.1(O); Pulse Ox 97% on R/A; Weight 102.06 kg; ld1 Height 5 ft. 4 in. (162.56 cm); Pain 3/10; 12:42 Body Mass Index 38.62 (102.06 kg, 162.56 cm) ld1 MDM: 13:05 Patient medically screened. cp 13:45 Differential diagnosis: open fracture, closed fracture, cellulitis, abscess, retained cp foreign body. 05/24 13:30 Order name: XRAY Hand RIGHT 3 View cp 05/24 15:01 Order name: Cliff Wrap cp Administered Medications: No medications were administered Disposition Summary: 05/24/22 15:04 Discharge Ordered Location: Home cp Problem: new cp Symptoms: have improved cp Condition: Stable cp Diagnosis - Cellulitis of right upper limb - right hand cp - Bitten by dog - right hand cp Followup: cp - With: Orlando Holland MD - When: 1 - 2 days - Reason: Wound Recheck Discharge Instructions: - Discharge Summary Sheet cp - Cellulitis, Adult cp - Animal Bite, Adult cp Forms: - Medication Reconciliation Form cp - Thank You Letter cp - Antibiotic Education cp - Prescription Opioid Use cp Prescriptions: - Augmentin 875-125 mg Oral Tablet - take 1 tablet by ORAL route every 12 hours for 10 days; 20 tablet; Refills: 0, cp Product Selection Permitted - Ibuprofen 800 mg Oral Tablet - take 1 tablet by ORAL route every 8 hours As needed take with food; 30 tablet; cp Refills: 0, Product Selection Permitted - Bactrim DS 800-160 mg Oral Tablet - take 1 tablet by ORAL route every 12 hours for 10 days; 20 tablet; Refills: 0, cp Product Selection Permitted Addendum: 05/25/2022 16:09 Co-signature as Attending Physician, Chalino Allison MD. r n Signatures: Dispatcher [employer] EDMS Chalino Allison MD MD rn Page, Corey, PA PA Lacie Carrion RN RN ld1 Corrections: (The following items were deleted from the chart) 15:20 05/24 13:35 Differential diagnosis: open fracture, closed fracture, cellulitis, cp abscess, retained foreign body cp
[2022-05-24] MEDS ORDERED: SMZ./TMP. 800/160 MG TABLET ONE (15:17)
[2022-05-24] MEDS ORDERED: IBUPROFEN 400 MG TAB ONE (15:17)
[2022-05-24] MEDS ORDERED: AMOX/K CLAV 875 MG TAB ONE (15:18)
[2022-05-24 17:53] VITALS: BP 188/94; TEMP 98.1; O2SAT 97
== END 2022-05-24 15:21 | disposition home or self-care (01) ==
LOC: ER 12:10
DX: L03.113 Cellulitis of right upper limb (principal); W54.0XXA Bitten by dog, initial encounter; F17.210 Nicotine dependence, cigarettes, uncomplicated; I10 Essential (primary) hypertension; Z88.1 Allergy status to other antibiotic agents; Z88.5 Allergy status to narcotic agent
CPT/HCPCS: 99282

== ENCOUNTER 2023-05-10 07:05 | Day surgery (SDC) | payer OTHER ==
[2023-05-05 10:40] LABS: Absolute Lymphocytes (CBC) 3.4 K/uL (0.7-4.9); Hematocrit 45.9 % (36.0-45.0); Lymphocytes % 28.1 % (15.3-44.8); MCV 90.9 fL (80-100); MPV 9.2 fL (7.6-11.3); Platelets 186 thou/uL (152-406); RBC Red Blood Cell Count 5.04 M/uL (3.86-4.86)
--- NOTE | 2023-05-05 10:56 | RAD REPORT ---
EXAM DESCRIPTION: RAD - Chest Pa And Lat (2 Views) - 05/05/2023 10:19 am CLINICAL HISTORY: Pre op pending heart catheterization Chest pain. COMPARISON: Chest Single View dated 08/20/2017; CHEST SINGLE VIEW dated 04/04/2014; CHEST SINGLE VIEW dated 04/03/2014; CHEST PA AND LAT 2 VIEW dated 03/30/2014 FINDINGS: Mild interstitial pulmonary edema. The heart is mildly enlarged in size. No displaced frac tures. IMPRESSION: Mild CHF.
[2023-05-05 11:03] LABS: Protime INR 0.94
[2023-05-05 11:06] LABS: Potassium 4.2 mEq/L (3.5-5.1)
--- NOTE | 2023-05-06 15:48 | EKG ---
Test Date: 2023-05-05 Test Time: 09:52:43 Family Worker: ELY MEASUREMENT RESULTS: Intervals: Rate: 64 NM: 160 QRSD: 76 QT: 400 QTc: 412 [place]: P: 33 NM: 160 QRS: 48 T: 54 INTERPRETIVE STATEMENTS: Normal sinus rhythm Septal infarct, age undetermined Abnormal ECG Compared to ECG 08/20/2017 16:25:02 Myocardial infarct finding now present Sinus bradycardia no longer present Electronically Signed On 05-06-23 15:43:35 CDT by Milton Reeves
[2023-05-10] MEDS ORDERED: NA CHLORIDE 0.9% 500 ML ONE (07:42)
[2023-05-10] MEDS ORDERED: LIDOCAINE 1% 20 ML MDV ONE (07:56)
[2023-05-10] MEDS ORDERED: HEPA 1000U/500MLS 2,000 UNIT/1,000 ML BAG IV ONE (07:56)
[2023-05-10] MEDS ORDERED: MIDAZOLAM HCL 2 MG/2 ML INJ ONE (07:57)
[2023-05-10] MEDS ORDERED: HEPARIN 5000 UNIT/ML 1 ML VIAL ONE (07:57)
[2023-05-10] MEDS ORDERED: FENTANYL CITR 100 MCG/2 ML ONE (07:57)
[2023-05-10] MEDS ORDERED: ATROPINE SULF 1 MG/10 ML SYR IV ONE (07:58)
[2023-05-10] MEDS ORDERED: ASPIRIN 325 MG TAB ONE (07:58)
[2023-05-10] MEDS ORDERED: TICAGRELOR 90 MG TABLET PO ONE (07:58)
[2023-05-10] MEDS ORDERED: HEPARIN 10,000 UNIT/10 ML VIAL IV ONE (07:58)
[2023-05-10] MEDS ORDERED: CLOPIDOGREL 75 MG TABLET ONE (07:58)
[2023-05-10] MEDS ORDERED: VERAPAMIL HCL 10 MG/4 ML VIAL IV ONE (08:00)
[2023-05-10] MEDS ORDERED: REGADENOSON 0.4 MG/5 ML SYR IV ONE ×2 (08:45→08:58)
[2023-05-10 09:33] VITALS: TEMP 98
--- NOTE | 2023-05-10 10:44 | OP ---
Date of Procedure: 05/10/2023 Surgeon: CONSTANTIN LOWERY Procedure Performed: 1.Selective coronary angiogram. 2.Left heart catheterization. 3.FFR, moderate mid LAD stenosis, value of 0.86, which is insignificant. 4.FFR of mid left circumflex stenosis and value of 0.95, which was insignificant. Indication: Unstable angina. Access: Right radial artery 6-[place] closed with TR band. Complications: None. Bleeding: Less than 50 mL. Anesthesia: Total sedation time was 1 hour. Description Of Procedure: After risks, benefits, and alternatives were explained, patient agreed to procedure and signed informed consent. The patient was brought into the cardiac catheterization [facility], prepped and draped in usual sterile fashion. Then, I accessed the right radial artery using pediatric micropuncture kit, placed a 6-[place] Slender sheath and took 5-[place] 4 catheter into the aortic root over a J-wire, engaged left main and took standard views and then the RCA and took s tandard views. The catheter was pushed over the wire into the LV, measured the LVEDP. Pullback did not record any gradient. Then, I gave systemic heparin to assure ACT level above 250 throughout the procedure. We took the 6-[place] EBU3.5 guide over J-wire into the aortic root, engaged left main and took FFR wire into the aortic root. Pressures were equalized and then the wire was advanced into th e LAD, passing the area of stenosis and the FFR using Lexiscan, value was 0.86. Then, wire was pulle d back to the aortic root and there was no drift. Then, the FFR wire was advanced into the left circ umflex passing the area of stenosis and FFR using Lexiscan was performed again and the value was 0.95 , which was insignificant. Then removed the wire. Final angiogram was satisfactory and then removed the guide and the sheath and placed TR band with good hemostasis. Findings: 1.Left main is normal. 2.LAD: Proximal segment is normal. Mid segment has diffuse 60% with negative FFR value of 0.86. T he rest of the LAD with luminal irregularities. 3.Left circumflex: Proximal luminal irregularities. OM branch is very small. After takeoff of the OM branch, there is a mid left circumflex 60% stenosis with negative FFR of 0.95. 4.RCA: Large and dominant. Proximal 50%, mid diffuse 40%. 5.LVEDP normal between 5 and 10 mmHg. Conclusion: 1.Moderate coronary artery disease of mid LAD, mid left circumflex, and proximal RCA. The LAD and l eft circumflex are negative by FFR. 2.Normal LVEDP. Recommendation: Medical management and close monitoring. /LUIS Voice ID: [id number] Report ID: [id number]
[2023-05-10 13:09] VITALS: O2SAT 95
[2023-05-10 13:16] VITALS: BP 133/88
== END 2023-05-10 11:50 | disposition home or self-care (01) ==
LOC: CCL 07:05
PROVIDERS: ATTEND Internal Medicine
DX: I25.110 Atherosclerotic heart disease of native coronary artery with unstable angina pectoris (principal); I10 Essential (primary) hypertension; E78.5 Hyperlipidemia, unspecified; E11.9 Type 2 diabetes mellitus without complications; Z88.1 Allergy status to other antibiotic agents; Z88.5 Allergy status to narcotic agent; Z91.09 Other allergy status, other than to drugs and biological substances
CPT/HCPCS: 93005; 85025; 80048; 36415; 83721; 85610; 82947; 85730; 71046; 93458; 76937; 93571; 93572; C1893; Q9967; J1644; J2785 ×2; J2001; J2250; J3010; J7040; J0461

== ENCOUNTER → 2024-02-21 | Day surgery (SDC) | payer OTHER ==
--- NOTE | 2024-02-21 11:51 | RAD REPORT ---
EXAM DESCRIPTION: US - Breast Core BX w/US Guidance - 02/21/2024 10:28 am CLINICAL HISTORY: Right breast mass COMPARISON: 12/29/2023 TECHNIQUE: The risks, benefits alternatives to the procedure were explained to the patient and infor med consent obtained. Skin and subcutaneous tissues anesthetized with lidocaine. Under sonographic guidance, 3 x 14 gauge vacuum assisted core biopsies of the mass within the right b reast obtained. 2 centimeter specimens taken. Tissue given to pathology. Subsequently a localizing clip was placed into the mass. Patient experienced no immediate complication IMPRESSION: Technically successful ultrasound-guided vacuum assisted biopsy of the indeterminate rig ht breast mass at 3 o'clock.
== END ==
LOC: DS 09:38
PROVIDERS: ATTEND Nurse Practitioner Family
DX: D24.1 Benign neoplasm of right breast (principal)
CPT/HCPCS: 19083; 88305

== ENCOUNTER 2024-04-16 01:49 | Emergency (ER) | payer OTHER ==
[2024-04-16] MEDS ORDERED: DIAZEPAM 10 MG/2 ML INJ SYRINGE ONE (02:31)
[2024-04-16] MEDS ORDERED: KETOROLAC 30 MG/ML INJ ONE (02:31)
[2024-04-16 02:55] LABS: Absolute Eosinophils 0.4 K/uL (0-0.5); Absolute Lymphocytes (CBC) 2.8 K/uL (0.7-4.9); Absolute Monocytes 0.7 K/uL (0.1-1.3); Absolute Neutrophil 5.5 K/uL (1.8-8.0); Basophils % 0.4 % (0-1.3); Eosinophils % 4.3 % (0-4.4); Hematocrit 43.8 % (36.0-45.0); Hemoglobin 14.7 g/dL (12.0-15.0); Lymphocytes % 29.5 % (15.3-44.8); MCH 31.1 pg (27.0-35.0); MCHC 33.6 g/dL (32.0-36.0); MCV 92.6 fL (80-100); MPV 9.3 fL (7.6-11.3); Monocytes % 7.7 % (3.3-12.3); Neutrophils % 58.1 % (41.7-73.7); Platelets 169 thou/uL (152-406); RBC Red Blood Cell Count 4.73 M/uL (3.86-4.86); Red Cell Distribution Width 13.9 % (12.1-15.2)
[2024-04-16 03:03] LABS: Albumin/Globulin Ratio 0.8 (1.1-1.8); Anion Gap 5.8 mEq/L (5.0-15.0); Bilirubin Total 0.4 mg/dL (0.2-1.0); Potassium 3.8 mEq/L (3.5-5.1)
--- NOTE | 2024-04-16 03:59 | RAD REPORT ---
CT ABDOMEN PELVIS WITHOUT IV CONTRAST CLINICAL INDICATION: Abdominal pain. COMPARISON: No prior images are available for comparison at time of interpretation. TECHNIQUE: CT images of the abdomen and pelvis obtained without contrast. Multiplanar reformats were provided. Dose-optimization techniques such as automated exposure control, iterative reconstruction, and mA and/or kV adjustment for patient size was utilized for this examination. FINDINGS: LOWER CHEST: Lung bases are clear. No pleural or pericardial effusion. Small calcified granuloma at l eft lower lobe. LIVER: Unremarkable. BILIARY: Status post cholecystectomy. No biliary ductal dilatation. PANCREAS: Unremarkable. SPLEEN: Unremarkable. ADRENALS: Unremarkable. KIDNEYS/URETERS: Unremarkable. BOWEL/STOMACH: Scattered colonic diverticula without acute diverticulitis. No focal bowel wall [place] or dilatation. No bowel obstruction. APPENDIX: Appendix is not definitively visualized. No focal inflammation in right lower quadrant to s uggest acute appendicitis. MESENTERY/PERITONEUM: Unremarkable. RETROPERITONEUM: No adenopathy. URINARY BLADDER: Tiny intraluminal air locule at anterior urinary bladder with associated mild bladde r wall irregularity and adjacent perivesical stranding (series 203 image 72). REPRODUCTIVE: Uterus is not visualized. VASCULAR: No aortic aneurysm. Mild atherosclerotic calcifications of the abdominal and pelvic vascula ture. ABDOMINAL/PELVIC WALL: Small fat containing umbilical hernia. BONES: Mild multilevel degenerative changes of spine. No acute abnormality. No compression deformity, nor osteolytic or sclerotic lesion. IMPRESSION: Tiny intraluminal air locule at anterior urinary bladder with associated mild bladder wall irregulari ty and adjacent perivesical stranding. Differential consideration includes post-instrumentation changes, traumatic bladder contusion and microperforation, bladder abscess. Correlation with clinical history. CT cystogram may be helpful to assess integrity of urinary bladder. Electronically signed by: Yamileth Beck MD 04/16/2024 03:54 AM CDT Due to temporary technical issues with the PACS/Solvate reporting system, reports are being shey d by the in-house radiologist without review as a courtesy to ensure prompt reporting the interpreting radiologist is fully responsible for the content of the report. Transcribed Date/Time: 04/16/2024 3:59 AM
[2024-04-16 05:06] LABS: Renal Epithelial <5 /HPF (None Seen); Specific Gravity 1.012 (1.005-1.030); Sqamous Epithelial <5 /HPF (None Seen); Urine Bacteria <20 /HPF (<20); Urine Bilirubin NEGATIVE (Negative); Urine Blood Trace (Negative); Urine Clarity Turbid (Clear); Urine Color Light-Yellow (Yellow); Urine Culture Reflex Order REFLEXED; Urine Glucose NEGATIVE (Negative); Urine Ketones NEGATIVE (Negative); Urine Micro Reflex YN NO BILL MICROSCOPIC; Urine Nitrite NEGATIVE (Negative); Urine Protein NEGATIVE (Negative); Urine RBC <5 /HPF (None Seen); Urine Urobilinogen Normal (Normal); Urine WBC 20-50 /HPF (<5); Urine pH 5.5 (5.0-7.0)
--- NOTE | 2024-04-16 05:49 | EDPHYS ---
Physician Documentation [facility] Name: Cindy Montemayor Age: 53 yrs Sex: Female : 1970 Arrival Date: 04/16/2024 Time: 01:49 Bed 16 Private MD: ED Physician Viktor Hobson HPI: 04/16 02:16 This 53 yrs old Female presents to ER via Unassigned with complaints of ec2 Abdominal Pain. 02:16 Patient arrives today for evaluation of abdominal pain. States that she was stretching ec2 to pick something up and subsequently injured her right upper abdominal wall. Patient reports some associated pain with movement. No vomiting, no diarrhea. Patient with previous history of multiple abdominal surgeries. . 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 - Infectious Disease History:: Denies. - Social history:: Smoking status: Patient reports the use of cigarette tobacco products, smokes one pack cigarettes per day. ROS: 02:16 Constitutional: as per hpi ec2 Exam: 02:16 Constitutional: GEN: NAD Head: atraumatic Eyes: EOMI Ears: External ears are ec2 normal. CV: regular rate LUNGS: no respiratory distress ABD: non-distended, soft, generally tender, not guarding, not rigid, surgical scar noted, well-healed SKIN: no evidence of rashes MSK: no evidence of trauma Vital Signs: 01:53 BP 172 / 82; Pulse 72; Resp 17 S; Temp 98.3; Pulse Ox 99% on R/A; Weight 99.34 kg; ha1 Height 5 ft. 4 in. ; 02:10 BP 170 / 75; Pulse 65; Resp 18; Temp 98.3; Pulse Ox 96% on R/A; Pain 9/10; rg5 03:00 BP 140 / 68; Pulse 64; Resp 17; Pulse Ox 94% on R/A; Pain 4/10; rg5 04:46 BP 119 / 62; Pulse 65; Resp 16; Pulse Ox 96% on R/A; Pain 0/10; rg5 05:40 BP 119 / 65; Pulse 67; Resp 16; Temp 98(O); Pulse Ox 96% on R/A; Pain 0/10; rg5 01:53 Body Mass Index 37.59 (99.34 kg, 162.56 cm) ha1 02:10 Pain Scale: Adult rg5 03:00 Pain Scale: Adult rg5 04:46 Pain Scale: Adult rg5 05:40 Pain Scale: Adult rg5 MDM: 01:55 Patient medically screened. ec2 02:16 Data reviewed: vital signs. ED course: Patient arrives today for abdominal pain. ec2 Examination remarkable for well-appearing nontoxic dividual's otherwise in no acute distress with a reassuring examination. Will obtain lab work, CT imaging. Differential diagnose include processes such as pancreatitis, liver pathology, abdominal wall pain. 03:10 ED course: Labs are nonactionable.. ec2 04:07 ED course: CT imaging shows small air locules in the anterior bladder, will obtain ec2 urinary test as well. Patient without any point tenderness over the suprapubic region. Radiology comments about possible microperforation, possible contusion, possible instrumentation. Patient without any significant leukocytosis, is nontoxic-appearing, low suspicion for abscess . 05:47 ED course: Urine infectious appearing, start on antibiotics and have the patient ec2 follow-up outpatient with primary care. Return precautions given. . 04/16 02:16 Order name: CBC with Diff; Complete Time: 03:10 ec2 04/16 02:16 Order name: CMP; Complete Time: 03:10 ec2 04/16 02:16 Order name: Lipase; Complete Time: 03:10 ec2 04/16 04:06 Order name: UAM; Complete Time: 05:47 ec2 04/16 05:11 Order name: Urine Culture EDMS 04/16 02:16 Order name: CT Abd/Pelvis - Without Contrast ec2 Administered Medications: 02:37 Drug: Ketorolac IVP 15 mg IVP once Route: IVP; Site: left antecubital; rg5 04:39 Follow up: Response: No adverse reaction rg5 02:37 Drug: Diazepam IVP 5 mg IVP once Route: IVP; Site: left antecubital; rg5 04:39 Follow up: Response: No adverse reaction rg5 02:38 Not Given (Patient Refused): morphineor iv 4 mg IVP once over 4 mins rg5 06:10 Drug: Macrobid PO 100 mg PO once; administer with food Route: PO; rg5 06:27 Follow up: Response: No adverse reaction rg5 Disposition Summary: 04/16/24 05:48 Discharge Ordered Notes: Location: Home ec2 Condition: Stable ec2 Diagnosis - Abdominal pain, unspecified ec2 - UTI/ Urinary tract infection, site not specified ec2 Followup: ec2 - With: Private Physician - When: - Reason: Re-evaluation by your physician Discharge Instructions: - Discharge Summary Sheet ec2 - Abdominal Pain, Adult ec2 - Urinary Tract Infection, Adult ec2 Forms: - Medication Reconciliation Form ec2 - Antibiotic Education ec2 - Prescription Opioid Use ec2 - Patient Portal Instructions ec2 - Leadership Thank You Letter ec2 Prescriptions: - Macrobid 100 mg Oral Capsule - take 1 capsule ORAL route every 12 hours for 7 days; 14 capsule; Refills: 0, ec2 Product Selection Permitted - methocarbamol 500 mg Oral tablet - take 2 tablets ORAL route 4 times per day; 30 tablet; Refills: 0, Product ec2 Selection Permitted Signatures: Dispatcher [employer] Yane Werner RN RN ha1 Viktor Hobson MD MD ec2 Jonathan Fortune RN RN rg5
--- NOTE | 2024-04-16 05:49 | ER ---
Nurse's Notes [facility] Name: Cindy Montemayor Age: 53 yrs Sex: Female : 1970 Arrival Date: 04/16/2024 Time: 01:49 Bed 16 Private MD: Diagnosis: Abdominal pain, unspecified;UTI/ Urinary tract infection, site not specified Presentation: 04/16 01:53 Chief complaint: Patient states: RIGHT UPPER QUADRANT PAIN. ha1 01:53 Coronavirus screen: Vaccine status: Patient reports being unvaccinated. Ebola Screen: ha1 No symptoms or risks identified at this time. Initial Sepsis Screen: Does the patient meet any 2 criteria? No. Patient's initial sepsis screen is negative. Does the patient have a suspected source of infection? No. Patient's initial sepsis screen is negative. Risk Assessment: Do you want to hurt yourself or someone else? Patient reports no desire to harm self or others. Onset of symptoms was April 10, 2024. 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 - Infectious Disease History:: Denies. - Social history:: Smoking status: Patient reports the use of cigarette tobacco products, smokes one pack cigarettes per day. Screenin:10 [facility] ED Fall Risk Assessment (Adult) History of falling in the last 3 months, rg5 including since admission No falls in past 3 months (0 pts) Confusion or Disorientation No (0 pts) Intoxicated or Sedated No (0 pts) Impaired Gait No (0 pts) Mobility Assist Device Used No (0 pt) Altered Elimination No (0 pt) Score/Fall Risk Level 0 - 2 = Low Risk Oriented to surroundings, Maintained a safe environment, Hourly rounding (assess needs \T\ fall precautionary measures) done. 02:56 Abuse screen: Denies threats or abuse. Denies injuries from another. Nutritional ha1 screening: No deficits noted. Tuberculosis screening: No symptoms or risk factors identified. Assessment: 02:10 General: Appears in no apparent distress. Behavior is crying. rg5 02:10 Pain: Complains of pain in abdomen Pain currently is 9 out of 10 on a pain scale. rg5 Alleviated by medications. Neuro: Level of Consciousness is awake, alert, obeys commands, Oriented to person, place, time. Cardiovascular: Patient's skin is warm and dry. Respiratory: Respiratory effort is even, unlabored, Respiratory pattern is regular, symmetrical. GI: Bowel sounds present X 4 quads. Abd is soft Reports lower abdominal pain, upper abdominal pain, nausea. Musculoskeletal: Circulation, motion, and sensation intact. Range of motion: intact in all extremities. 03:30 Reassessment: Patient and/or family updated on plan of care and expected duration. Pain rg5 level reassessed. Patient is alert, oriented x 3, equal unlabored respirations, skin warm/dry/pink. Patient states symptoms have improved. 04:45 Reassessment: Patient and/or family updated on plan of care and expected duration. Pain rg5 level reassessed. Patient is alert, oriented x 3, equal unlabored respirations, skin warm/dry/pink. Patient states feeling better. Patient states symptoms have improved. 05:45 Reassessment: Patient and/or family updated on plan of care and expected duration. Pain rg5 level reassessed. Patient is alert, oriented x 3, equal unlabored respirations, skin warm/dry/pink. Patient states feeling better. Patient states symptoms have improved. Vital Signs: 01:53 BP 172 / 82; Pulse 72; Resp 17 S; Temp 98.3; Pulse Ox 99% on R/A; Weight 99.34 kg; ha1 Height 5 ft. 4 in. ; 02:10 BP 170 / 75; Pulse 65; Resp 18; Temp 98.3; Pulse Ox 96% on R/A; Pain 9/10; rg5 03:00 BP 140 / 68; Pulse 64; Resp 17; Pulse Ox 94% on R/A; Pain 4/10; rg5 04:46 BP 119 / 62; Pulse 65; Resp 16; Pulse Ox 96% on R/A; Pain 0/10; rg5 05:40 BP 119 / 65; Pulse 67; Resp 16; Temp 98(O); Pulse Ox 96% on R/A; Pain 0/10; rg5 01:53 Body Mass Index 37.59 (99.34 kg, 162.56 cm) ha1 02:10 Pain Scale: Adult rg5 03:00 Pain Scale: Adult rg5 04:46 Pain Scale: Adult rg5 05:40 Pain Scale: Adult rg5 ED Course: 01:52 Patient arrived in ED. [email or web address] 01:52 Viktor Hobson MD is Attending Physician. ec2 02:10 Patient has correct armband on for positive identification. Bed in low position. Call rg5 light in reach. Side rails up X 1. Adult w/ patient. 02:10 Arm band placed on. rg5 02:10 No provider procedures requiring assistance completed. Inserted saline lock: 20 gauge rg5 in left antecubital area, using aseptic technique. Blood collected. Flushed with 10 mL NS. 02:11 Jonathan Fortune, RN is Primary Nurse. rg5 02:27 Triage completed. ha1 02:59 CT Abd/Pelvis - Without Contrast In Process Unspecified. EDMS 03:19 Awaiting lab results, Awaiting radiology results. rg5 06:29 Provided Education on: POST ER CARE. rg5 06:29 IV discontinued, bleeding controlled, No redness/swelling at site. Pressure dressing rg5 applied. Administered Medications: 02:37 Drug: Ketorolac IVP 15 mg IVP once Route: IVP; Site: left antecubital; rg5 04:39 Follow up: Response: No adverse reaction rg5 02:37 Drug: Diazepam IVP 5 mg IVP once Route: IVP; Site: left antecubital; rg5 04:39 Follow up: Response: No adverse reaction rg5 02:38 Not Given (Patient Refused): morphineor iv 4 mg IVP once over 4 mins rg5 06:10 Drug: Macrobid PO 100 mg PO once; administer with food Route: PO; rg5 06:27 Follow up: Response: No adverse reaction rg5 Medication: 02:10 VIS not applicable for this client. rg5 Outcome: 05:48 Discharge ordered by . ec2 06:29 Discharged to home ambulatory, rg5 06:29 Condition: stable 06:29 Instructed on discharge instructions, follow up and referral plans. Demonstrated understanding of instructions, follow-up care, medications, Prescriptions given X 2, 06:30 Patient left the ED. rg5 Signatures: Dispatcher [employer] EDNadya Dewitt [email or web address] Yane Titus RN RN ha1 Viktor Hobson MD MD ec2 Jonathan Fortune RN RN rg5
[2024-04-16] MEDS ORDERED: NITROFURAN MACRO 100 MG CAP PO ONE (06:18)
[2024-04-16 06:40] VITALS: O2SAT 96
[2024-04-16 06:41] VITALS: BP 119/65; TEMP 98
== END 2024-04-16 06:30 | disposition home or self-care (01) ==
LOC: ER 01:49
DX: N39.0 Urinary tract infection, site not specified (principal); F17.210 Nicotine dependence, cigarettes, uncomplicated
CPT/HCPCS: 87088; 85025; 81001; 87086; 36415; 87077; 87186; 83690; 80053; 74176; 96375; 96374; 99284; J3360